=== PATIENT | male | born 1990 ===

== ENCOUNTER 2017-05-10 15:32 | Emergency (ER) | payer MEDICAID ==
[2017-05-10 16:07] VITALS: BMI 33.2
[2017-05-10 16:13] VITALS: BP 119/71; PULSE 72; RESP 16; TEMP 98.9; O2SAT 98
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
== END 2017-05-10 16:45 | disposition home or self-care (01) ==
LOC: ED 15:32
DX: M25.511 Pain in right shoulder (principal); M25.551 Pain in right hip; V43.62XA Car passenger injured in collision with other type car in traffic accident, initial encounter; Y92.410 Unspecified street and highway as the place of occurrence of the external cause